=== PATIENT | male | born 1950 | race Caucasian/White ===

== ENCOUNTER 2017-10-26 18:48 | Emergency (ER) | payer SELFPAY ==
[2017-10-26] MEDS: AMLODIPINE 10 MG TAB PO (19:55)
== END 2017-10-26 20:30 | disposition home or self-care (01) ==
LOC: E/R 18:48
DX: I10 Essential (primary) hypertension (principal); Z76.0 Encounter for issue of repeat prescription
CPT/HCPCS: 99283; 99283-25